=== PATIENT | female | born 1990 | race Two or more races ===

== ENCOUNTER 2022-08-21 16:42 | Emergency (ER) | payer OTHER ==
[~2022-08-21] VITALS: Ht 172.7 cm; Wt 80.0 kg
[2022-08-21 17:00] VITALS: BP 127/86
== END 2022-08-21 22:49 | disposition left against medical advice (07) ==
LOC: ER 16:42
DX: S61.012A Laceration without foreign body of left thumb without damage to nail, initial encounter (principal); Z53.21 Procedure and treatment not carried out due to patient leaving prior to being seen by health care provider; W26.0XXA Contact with knife, initial encounter; Y93.89 Activity, other specified; Y92.89 Other specified places as the place of occurrence of the external cause; Y99.8 Other external cause status